=== PATIENT | male | born 1985 | race Caucasian/White ===

== ENCOUNTER 2017-07-09 05:05 | Inpatient (IN) | payer OTHER ==
[~2017-07-09] VITALS: Ht 182.9 cm; Wt 101.0 kg
[2017-07-09 10:05] VITALS: BP 144/76; PULSE 86; RESP 17; TEMP 98.1; O2SAT 98
[2017-07-09] MEDS ORDERED: ALUMINUM/MAGNESIUM/SIMETH 30 ML CUP PO PRN (10:30)
[2017-07-09] MEDS ORDERED: diphenhydrAMINE HCL 50 MG CAP PO PRN (10:30)
[2017-07-09] MEDS ORDERED: MAGNESIUM HYDROXIDE SUSP 30 ML CUP PO PRN (10:30)
[2017-07-09] MEDS ORDERED: BENZTROPINE MESYLATE 2 MG/2 ML VIAL IM PRN (10:30)
[2017-07-09] MEDS ORDERED: BENZTROPINE MESYLATE 1 MG TAB PO PRN (10:30)
--- NOTE | 2017-07-09 12:41 | HHI.HP ---
Provisional Diagnosis Admission Date July 09, 2017 at 10:14 [place] I. 1. Brief psychotic disorder Rule out primary psychotic disorder Rule out mood disorder with psychotic features Rule out psychosis due to a general medical or neurological condition Rule out psychosis due to substance [place] II. Deferred Certification of Person's Competence To Provide Express and Informed Consent I have personally examined Jared Segura , a person being served at [facility] on, July 09, 2017 12:41. Express and informed consent means consent voluntarily given in writing, by a competent person, after sufficient explanation and disclosure of the subject matter involved to enable the person to make a knowing and willful decision without any element of force, fraud, deceit, duress, or other form of constraint or coercion. This person is 18 years of age or older, is not now known to be incompetent to consent to treatment with a guardian advocate, and does not have a health care surrogate or proxy currently making medical treatment decisions. I have found this person to be one of the following: [] Competent to provide express and informed consent, as defined above, for voluntary admission to this facility and is competent to provide express and informed consent for treatment. He/she has the consistent capacity to make well reasoned, willful, and knowing decisions concerning his or her medical or mental health treatment. The person fully and consistently understands the purpose of the admission for examination/placement and is fully capable of personally exercising all rights assured under [place] [x] Incompetent to provide express and informed consent to voluntary admission, and this is incompetent to provide express and informed consent to treatment. The person must be transferred to involuntary status and a petition for a guardian advocate filed with the Circuit Court. [] Refusing to provide express and informed consent to voluntary admission but is competent to provide express and informed consent for treatment. The person must be discharged or transferred to involuntary status. Form shall be completed within 24 hours of a person's arrival at the receiving facility and filed in the clinical record of each person: 1. Admitted on a voluntary basis 2. Permitted to provide express and informed consent to his/her own treatment 3. Allowed to transfer from involuntary to voluntary status 4. Prior to permitting a person to consent to his or her own treatment after having been previously found incompetent to consent to treatment. History of Present Illness Capacity: Lacks Capacity Psych Chief Complaint: Psychosis HPI Mr. Segura is a 32-year-old male with no reported past psychiatric history who presents to us in transfer from [facility] under a [place] act. Documentation from outside hospital reviewed. According to the ED provider's note, the patient was brought into the ED when he was found staring at the sun, reportedly trying to contact the [place] consulate. Reviewing our electronic medical record, it appears this is patient's first visit to [place]. Patient seen and examined. Chart reviewed. Case discussed with nursing staff. On my examination today, patient is frankly responding to internal stimuli. Prior to my interview with him, I observe him speaking with an unseen interlocutor. During the interview, the patient is scanning the room intently with his eyes, and when I ask what he is doing, he explains that he is looking for a window. When I point out the large window in the corner of his room, he says that he is looking for "a window that opens." Patient confirms that he was trying to contact the [place] consulate by staring at the sun. Unclear how long he was staring at the sun, and patient is a poor historian. He explains " I had requested that they contact me about diplomatic immunity. 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 He denies AVH but appears frankly internally preoccupied as noted above. No other delusional material reported. Mood is "gloomy" and his sleep reportedly has been fairly poor. He denies any suicidal or homicidal ideation at this time. Remainder of the psychiatric ROS is negative. No acute physical complaints. Past psychiatric history: Patient denies a history of psychiatric diagnosis. He denies a history of inpatient or outpatient psychiatric treatment. He denies a history of suicide attempts. He denies a history of violent behavior. Family history: The patient denies a family history of mental illness or suicide. Chemical dependency history: Patient denies any abuse of drugs or alcohol. Social history: The patient reports that he lives with his mother Ria. He is single with no children. He is college educated and obtained a bachelor's degree in information technology. He says that he works but cannot recall in what capacity. He denies any history. Denies any legal history. Denies any access to guns or firearms. Denies any history of trauma. Describes himself as "kind of" gnosticism. Given the patient's degree of psychiatric impairment and with the patient's permission, I endeavored to reach out to patient's mother Ria and Father Ben. Left a voicemail at the number for patient's mother. Number for patient' s father was not set up to receive voicemails. I also tried calling the home number, which also did not allow me to leave a voicemail. Review of Systems ROS Limitations: Psychotic, Poor Historian Except as stated in HPI: all other systems reviewed are Neg Past Family Social History Coded Allergies: tramadol (Unverified Allergy, Unknown, 07/09/17) Past Medical History Patient denies any history of seizure. He denies any formally diagnosed medical problems but says that he has been having headaches and confusion over the last several weeks. Patient takes no home medications. Patient's Strengths (min. 2) In a monitored setting. Verbally fluent. Physical Exam Physical exam was completed by ED provider at outside hospital. On my examination today, the patient appears to be in no acute physical distress. No motor abnormalities noted. Laboratories and vital signs reviewed: Vital Signs Vital Signs Date Time Temp Pulse Resp B/P (MAP) Pulse Ox O2 Delivery O2 Flow Rate FiO2 07/09/17 10:05 98.1 86 17 144/76 (98) 98 Lab Results Laboratories from outside hospital reviewed: CBC reveals leukocytosis at 16.25. No overt signs or symptoms of infection. BMP fairly unremarkable except for mild hyperglycemia in nonfasting sample. Urine toxicology negative. Alcohol level undetectable. Mental Status Examination Appearance: Disheveled Consciousness: Alert Orientation: Person, Place, Date/Time (2018. Gives the month as June.) Motor Activity: Normal gait Speech: Unremarkable Language: Other (Somewhat rambling) Fund of Knowledge: Adequate Attention and Concentration: Easily Distracted Memory: Impaired (Suspect psychosis interferes) Mood: Other ("Gloomy") Affect: Blunt Thought Process & Associations: Circumstantial Thought Content: Hallucinations, Delusional Hallucination Type: Other (Appears frankly internally stimulated) Delusion Type: Other (Grandiose) Suicidal Ideation: No Suicidal Plan: No Suicidal Intention: No Homicidal Ideation: No Homicidal Plan: No Homicidal Intention: No Insight: Poor Judgment: Poor Assessment & Plan Problem List: (1) Brief psychotic disorder ICD Codes: F23 - Brief psychotic disorder Assessment & Plan 32-year-old male with psychiatric history as detailed above who presents in transfer from outside hospital under [place] act. On my examination today, the patient presents as floridly psychotic. His presenting behavior of staring into the sun is concerning, and I am worried about self-care deficit more generally as a consequence of psychiatric illness. The patient denies a history of psychiatric illness, and so unless collateral information to the contrary is obtained I will treat this as first-break psychosis. Patient requires psychiatric hospitalization at this time for safety, observation and stabilization. Admit inpatient. Involuntary status. I have completed first opinion. Consult for second opinion. Request healthcare surrogate and guardian advocate. Unable to order any psychotropics at this time as we have no one to provide consent. Patient might benefit from empiric trial of antipsychotic medication. Initiate first break psychosis workup including MRI of the brain, EEG, TSH, B12, folate, ESR, CHIKIS, ammonia, RPR, HIV. Check CBC to follow up leukocytosis. Check CMP. Check EKG for QTc. Patient was staring at the sun for an indeterminate amount of time prior to admission; he has no overt visual difficulties, but I will request an ophthalmology consultation to assess for more subtle damage as a consequence of this behavior. Vitals every shift. Counselor to see. Collateral information. Disposition planning. Estimated length of stay: 5-7 days. Discharge Planning Pending psychiatric stabilization Request HC Surrog/Guard Advoc?: Yes Ismael Quigley MD July 09, 2017 12:41
[2017-07-09 17:00] VITALS: BP 127/83; PULSE 90; RESP 18; TEMP 97.9; O2SAT 98
[2017-07-09 17:59] LABS: AUTOMATED NEUTROPHIL # 6.4 TH/MM3 (1.8-7.7); BASOPHIL % 0.4 % (0.0-2.0); EOSINOPHIL # 0.2 TH/MM3 (0-0.4); EOSINOPHIL % 1.8 % (0.0-4.0); HEMATOCRIT 43.1 % (39.0-51.0); HEMOGLOBIN 15.1 GM/DL (13.0-17.0); LYMPH % 22.6 % (9.0-44.0); LYMPHOCYTE # 2.2 TH/MM3 (1.0-4.8); MEAN CELL VOLUME 88.9 FL (80.0-100.0); MEAN CORPUSCULAR HEMOGLOBIN 31.1 PG (27.0-34.0); MEAN PLATELET VOLUME 8.8 FL (7.0-11.0); MONO % 8.7 % (0.0-8.0); MONOCYTE # 0.8 TH/MM3 (0-0.9); NEUT % 66.5 % (16.0-70.0); PLATELET COUNT 245 TH/MM3 (150-450); RED BLOOD COUNT 4.84 MIL/MM3 (4.50-5.90); RED CELL DISTRIBUTION WIDTH 15.8 % (11.6-17.2); WHITE BLOOD COUNT 9.7 TH/MM3 (4.0-11.0)
[2017-07-09 18:15] LABS: AST (GOT) 22 U/L (15-37); BLOOD UREA NITROGEN 7 MG/DL (7-18); CALCIUM 8.4 MG/DL (8.5-10.1); CHLORIDE 103 MEQ/L (98-107); CREATININE 0.85 MG/DL (0.60-1.30); GLOMERULAR FILTRATION RATE 105 ML/MIN (>89); GLUCOSE,RANDOM 112 MG/DL (74-106); SODIUM (NA) 138 MEQ/L (136-145)
[2017-07-09 18:42] LABS: ALKALINE PHOSPHATASE 62 U/L (45-117); ALT (GPT) 31 U/L (12-78); FOLATE 8.9 NG/ML (3.1-17.5); TOTAL BILIRUBIN ADULT 0.7 MG/DL (0.2-1.0); TOTAL PROTEIN 7.3 GM/DL (6.4-8.2)
[2017-07-09] MEDS: ACETAMINOPHEN 325 MG TAB PO PRN (21:00)
[2017-07-10 06:07] VITALS: BP 129/75; PULSE 77; RESP 16; TEMP 97.7; O2SAT 97
[2017-07-10 08:42] LABS: BICARBONATE 25.1 MEQ/L (21.0-32.0); BLOOD UREA NITROGEN 7 MG/DL (7-18); CALCIUM 8.5 MG/DL (8.5-10.1); CHLORIDE 105 MEQ/L (98-107); CHOLESTEROL 134 MG/DL (120-200); CREATININE 0.79 MG/DL (0.60-1.30); GLOMERULAR FILTRATION RATE 114 ML/MIN (>89); GLUCOSE,RANDOM 81 MG/DL (74-106); SODIUM (NA) 139 MEQ/L (136-145); TRIGLYCERIDES 68 MG/DL (42-150)
[2017-07-10 08:46] LABS: HDL CHOLESTEROL 40.6 MG/DL (40.0-60.0); LDL CHOLESTEROL 80 MG/DL (0-99)
--- NOTE | 2017-07-10 09:54 | RADRPT ---
EXAM DATE/TIME: 07/10/2017 09:09 [place] COMPARISON: No previous studies available for comparison. INDICATIONS : Cephalgia. Confusion. Psychosis. CONTRAST: 20 cc Omniscan (gadodiamide) IV MEDICAL HISTORY : None. SURGICAL HISTORY : None. ENCOUNTER: Initial ACUITY: 2 day PAIN SCORE: 3/10 LOCATION: head. TECHNIQUE: Multiplanar, multisequence MRI of the brain was performed both prior to and following the administrat ion of paramagnetic contrast. FINDINGS: CEREBRUM: The ventricles are normal for age. No evidence of midline shift, mass lesion, hemorrhage or acute in farction. No extraaxial fluid collections are seen. The pituitary gland and suprasellar cistern are normal in configuration. WHITE MATTER: No significant signal abnormalities are seen in the white matter. POSTERIOR FOSSA: The cerebellum and brainstem are intact. The 4th ventricle is midline. The cerebellopontine angle is unremarkable. The cerebellar tonsils are normal in position. DIFFUSION IMAGING: No focal areas of restricted diffusion are seen. No evidence of acute infarction. EXTRACRANIAL: The visualized portions of the orbits and paranasal sinuses are unremarkable. POST-CONTRAST: No abnormal areas of parenchymal or dural enhancement. No evidence of blood-brain barrier breakdown. CONCLUSION: Normal examination for a patient of this age. Matty Crook MD on July 10, 2017 at 9:45 Board Certified Radiologist. This report was verified electronically.
[2017-07-10] MEDS ORDERED: GADODIAMIDE PF 287 MG/ML 20 ML VIAL (for RAD MRI) IVCONTRAST ONE (10:13)
--- NOTE | 2017-07-10 12:39 | PD.PSY.CON ---
Provisional Diagnosis Admission Date July 09, 2017 at 10:14 [place] I. 1. Brief psychotic disorder Rule out primary psychotic disorder Rule out mood disorder with psychotic features Rule out psychosis due to a general medical or neurological condition Rule out psychosis due to substance [place] II. Deferred History of Present Illness Service Psychiatry Consult Requested By Psychiatry Reason for Consult Second opinion Primary Care Physician No Primary Care Physician HPI Mr. Segura is a 32-year-old male with no reported past psychiatric history who presents to us in transfer from [facility] under a [place] act. Documentation from outside hospital reviewed. According to the ED provider's note, the patient was brought into the ED when he was found staring at the sun, reportedly trying to contact the [place] consulate. Reviewing our electronic medical record, it appears this is patient's first visit to [place].Patient seen and examined. Chart reviewed. Case discussed with nursing staff. On my examination today, patient is frankly responding to internal stimuli. Prior to my interview with him, I observe him speaking with an unseen interlocutor. During the interview, the patient is scanning the room intently with his eyes, and when I ask what he is doing, he explains that he is looking for a window. When I point out the large window in the corner of his room, he says that he is looking for "a window that opens." Patient confirms that he was trying to contact the [place] consulate by staring at the sun. Unclear how long he was staring at the sun, and patient is a poor historian. He explains "I had requested that they contact me about diplomatic immunity. 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 He denies AVH but appears frankly internally preoccupied as noted above. No other delusional material reported. Mood is "gloomy" and his sleep reportedly has been fairly poor. He denies any suicidal or homicidal ideation at this time. Remainder of the psychiatric ROS is negative. No acute physical complaints. The patient is a 32-year-old man, domiciled with his mother in a [place], single, unemployed, with psychiatric history of OCD, no prepsychotic hospitalizations, no previous suicide attempts, no significant medical history, who was brought to the hospital transfer from [facility] in [facility] on the Lomas act because the patient was found staring at the son was reportedly trying to contact the [place] [employer]. Patient was consulted to me for second opinion. On my evaluation the patient is calm, cooperative, patient reports that he does not really know the reason he was brought to the hospital. He states that he was just fine "and the police could not understand". Patient denies having suicidal or homicidal ideation, he denies having visual and auditory hallucinations. Patient is visibly internally preoccupied, with very flat affect and oddly related. His oriented 3. Past Family Social History Coded Allergies: tramadol (Unverified Allergy, Unknown, 07/09/17) Current Medications Medications (Trade) Dose Ordered Sig/Paco Route Start Time Stop Time Status Last Admin (Benadryl) 50 mg HS PRN PO 07/09/17 10:30 Future Hold (Tylenol) 650 mg Q4H PRN PO 07/09/17 10:30 07/09/17 21:00 (Milk Of Magnesia Liq) 30 ml DAILY PRN PO 07/09/17 10:30 (Mag-Al Plus Susp Liq) 30 ml Q6H PRN PO 07/09/17 10:30 (Habitrol 21 Mg Patch.24 Hr) 1 patch DAILY PRN T-DERMAL 07/09/17 10:30 (Cogentin) 1 mg Q12H PRN PO 07/09/17 10:30 Future Hold (Cogentin Inj) 1 mg Q12H PRN IM 07/09/17 10:30 Future Hold Family Psych History No family psychiatric Social History The patient was born and raised in [place], he losing [place] with his mother, single, employed, Patient's Strengths (min. 2) In a monitored setting. Verbally fluent. Physical Exam Vital Signs Vital Signs Date Time Temp Pulse Resp B/P (MAP) Pulse Ox O2 Delivery O2 Flow Rate FiO2 07/10/17 06:07 97.7 77 16 129/75 (93) 97 Lab Results Test 07/09/17 17:29 07/10/17 07:08 White Blood Count 9.7 TH/MM3 Red Blood Count 4.84 MIL/MM3 Hemoglobin 15.1 GM/DL Hematocrit 43.1 % Mean Corpuscular Volume 88.9 FL Mean Corpuscular Hemoglobin 31.1 PG Mean Corpuscular Hemoglobin Concent 35.0 % Red Cell Distribution Width 15.8 % Platelet Count 245 TH/MM3 Mean Platelet Volume 8.8 FL Neutrophils (%) (Auto) 66.5 % Lymphocytes (%) (Auto) 22.6 % Monocytes (%) (Auto) 8.7 % Eosinophils (%) (Auto) 1.8 % Basophils (%) (Auto) 0.4 % Neutrophils # (Auto) 6.4 TH/MM3 Lymphocytes # (Auto) 2.2 TH/MM3 Monocytes # (Auto) 0.8 TH/MM3 Eosinophils # (Auto) 0.2 TH/MM3 Basophils # (Auto) 0.0 TH/MM3 CBC Comment DIFF FINAL Differential Comment Erythrocyte Sedimentation Rate 1 mm/hr Blood Urea Nitrogen 7 MG/DL 7 MG/DL Creatinine 0.85 MG/DL 0.79 MG/DL Random Glucose 112 MG/DL 81 MG/DL Total Protein 7.3 GM/DL Albumin 4.0 GM/DL Calcium Level 8.4 MG/DL 8.5 MG/DL Alkaline Phosphatase 62 U/L Aspartate Amino Transf (AST/SGOT) 22 U/L Alanine Aminotransferase (ALT/SGPT) 31 U/L Total Bilirubin 0.7 MG/DL Sodium Level 138 MEQ/L 139 MEQ/L Potassium Level 3.4 MEQ/L 3.7 MEQ/L Chloride Level 103 MEQ/L 105 MEQ/L Carbon Dioxide Level 26.0 MEQ/L 25.1 MEQ/L Anion Gap 9 MEQ/L 9 MEQ/L Estimat Glomerular Filtration Rate 105 ML/MIN 114 ML/MIN Ammonia 26 MCMOL/L Vitamin B12 Level 366 PG/ML Folate 8.9 NG/ML Thyroid Stimulating Hormone 3rd Gen 1.000 uIU/ML Rapid Plasma Reagin NON-REACTIVE HIV (1&2) Ab and P24 Ag, 4th Gener NONREACTIVE Triglycerides Level 68 MG/DL Cholesterol Level 134 MG/DL LDL Cholesterol 80 MG/DL HDL Cholesterol 40.6 MG/DL Cholesterol/HDL Ratio 3.30 RATIO Mental Status Examination Appearance: Disheveled Consciousness: Alert Orientation: Person, Place, Date/Time (2017. Gives the month as June.) Motor Activity: Normal gait Speech: Unremarkable Language: Other (Somewhat rambling) Fund of Knowledge: Adequate Attention and Concentration: Easily Distracted Memory: Impaired (Suspect psychosis interferes) Mood: Other ("Gloomy") Affect: Blunt Thought Process & Associations: Circumstantial Thought Content: Hallucinations, Delusional Hallucination Type: Other (Appears frankly internally stimulated) Delusion Type: Other (Grandiose) Suicidal Ideation: No Suicidal Plan: No Suicidal Intention: No Homicidal Ideation: No Homicidal Plan: No Homicidal Intention: No Insight: Poor Judgment: Poor Assessment & Plan Problem List: (1) Brief psychotic disorder ICD Codes: F23 - Brief psychotic disorder Assessment & Plan: I have seen and examined this patient, reviewed documentation, I agree and concur with Dr. Quigley assessment and plan. Consult appreciated. Assessment & Plan Estimated LOS: days Request HC Surrog/Guard Advoc?: Yes Fernando Del Valle MD July 10, 2017 12:39
--- NOTE | 2017-07-10 12:42 | HHI.PYPN ---
Subjective Chief Complaint: Psychosis Remarks Patient seen and examined with counselor and nurse. Chart reviewed. Case discussed with nursing staff. Patient noted to be quiet and seclusive to his room. On my examination today, the patient insists that the hole in his head, invisible to us, is getting larger and that he can "hear words" through this hole. He adamantly denies any auditory hallucinations, but it is unclear what he means by his report of hearing words through the hole. He appears a little less internally preoccupied today. No material regarding the [place] consulate volunteered today, although he does seem to be preoccupied with this material when I ask him about it. No other physical complaints. Patient unable to provide any new numbers for collateral. I tried calling all 3 numbers that we have on file: 1) Mother's number is confirmed to be a wrong number. 2) Father's number won't accept VM. 3) Home number won't accept VM. Review of Systems ROS Limitations: Psychotic Except as stated in HPI: all other systems reviewed are Neg Mental Status Examination Appearance: Disheveled Consciousness: Alert Orientation: Person, Place (At least) Motor Activity: Normal gait Speech: Unremarkable Language: Adequate Fund of Knowledge: Adequate Attention and Concentration: Easily Distracted Memory: Impaired (Suspect psychosis interferes) Mood: Other (Calm) Affect: Blunt Thought Process & Associations: Circumstantial Thought Content: Hallucinations, Delusional Hallucination Type: Other (Remains internally preoccupied) Delusion Type: Other (Suspect ongoing grandiosity) Suicidal Ideation: No (No SI voiced) Homicidal Ideation: No (No HI voiced) Insight: Poor Judgment: Poor Results Labs Test 07/09/17 17:29 07/10/17 07:08 White Blood Count 9.7 TH/MM3 Red Blood Count 4.84 MIL/MM3 Hemoglobin 15.1 GM/DL Hematocrit 43.1 % Mean Corpuscular Volume 88.9 FL Mean Corpuscular Hemoglobin 31.1 PG Mean Corpuscular Hemoglobin Concent 35.0 % Red Cell Distribution Width 15.8 % Platelet Count 245 TH/MM3 Mean Platelet Volume 8.8 FL Neutrophils (%) (Auto) 66.5 % Lymphocytes (%) (Auto) 22.6 % Monocytes (%) (Auto) 8.7 % Eosinophils (%) (Auto) 1.8 % Basophils (%) (Auto) 0.4 % Neutrophils # (Auto) 6.4 TH/MM3 Lymphocytes # (Auto) 2.2 TH/MM3 Monocytes # (Auto) 0.8 TH/MM3 Eosinophils # (Auto) 0.2 TH/MM3 Basophils # (Auto) 0.0 TH/MM3 CBC Comment DIFF FINAL Differential Comment Erythrocyte Sedimentation Rate 1 mm/hr Blood Urea Nitrogen 7 MG/DL 7 MG/DL Creatinine 0.85 MG/DL 0.79 MG/DL Random Glucose 112 MG/DL 81 MG/DL Total Protein 7.3 GM/DL Albumin 4.0 GM/DL Calcium Level 8.4 MG/DL 8.5 MG/DL Alkaline Phosphatase 62 U/L Aspartate Amino Transf (AST/SGOT) 22 U/L Alanine Aminotransferase (ALT/SGPT) 31 U/L Total Bilirubin 0.7 MG/DL Sodium Level 138 MEQ/L 139 MEQ/L Potassium Level 3.4 MEQ/L 3.7 MEQ/L Chloride Level 103 MEQ/L 105 MEQ/L Carbon Dioxide Level 26.0 MEQ/L 25.1 MEQ/L Anion Gap 9 MEQ/L 9 MEQ/L Estimat Glomerular Filtration Rate 105 ML/MIN 114 ML/MIN Ammonia 26 MCMOL/L Vitamin B12 Level 366 PG/ML Folate 8.9 NG/ML Thyroid Stimulating Hormone 3rd Gen 1.000 uIU/ML Rapid Plasma Reagin NON-REACTIVE HIV (1&2) Ab and P24 Ag, 4th Gener NONREACTIVE Triglycerides Level 68 MG/DL Cholesterol Level 134 MG/DL LDL Cholesterol 80 MG/DL HDL Cholesterol 40.6 MG/DL Cholesterol/HDL Ratio 3.30 RATIO Labs reviewed. First break psychosis laboratories unrevealing so far. Only pending laboratory is CHIKIS and HgbA1c. Last Impressions Brain MRI 07/10/17 0000 Signed Impressions: Service Date/Time: July 09:09 - CONCLUSION: Normal examination for a patient of this age. Matty Crook MD EEG pending. Patient refused EKG. Vitals/IOs Vital Signs Date Time Temp Pulse Resp B/P (MAP) Pulse Ox O2 Delivery O2 Flow Rate FiO2 07/10/17 06:07 97.7 77 16 129/75 (93) 97 Assessment & Plan Problem List: (1) Brief psychotic disorder ICD Codes: F23 - Brief psychotic disorder Assessment & Plan Ongoing psychotic symptoms. Workup for a general medical causes of psychosis unrevealing. Patient would likely benefit from an antipsychotic, but we still have no one to provide consent. Awaiting ophthalmology consultation. Continue to monitor on the inpatient unit. Continue other medications and care as ordered. Justification for Cont. Inpt. Impairment in reality construction. Concern for impairment in safety. High risk for decompensation in less restrictive environment. Discharge Planning Pending psychiatric stabilization Request HC Surrog/Guard Advoc?: Yes Ismael Quigley MD July 10, 2017 12:42
[2017-07-10 16:17] LABS: HEMOGLOBIN A1C 4.6 % (4.3-6.0)
[2017-07-10 18:23] VITALS: BP 142/81; PULSE 90; RESP 17; TEMP 98.8; O2SAT 98
[2017-07-11 06:17] VITALS: BP 136/93; PULSE 85; RESP 16; TEMP 98.2; O2SAT 99
--- NOTE | 2017-07-11 12:08 | PD.CONS ---
History of Present Illness Service Ophthalmology Consult Requested By Reason for Consult rule out solar maculopathy Primary Care Physician No Primary Care Physician Diagnoses: History of Present Illness 32 yo WM with h/o OCD who was brought to the hospital transferred from [facility] in [facility] under L[place] act because the patient was found staring at the sun. Reportedly trying to contact the [place] Consulate. Ophthalmology consulted for an eye exam. Pt states he has mild blurry central vision in both eyes. No significant ocular history. Past Family Social History Allergies: Coded Allergies: tramadol (Unverified Allergy, Unknown, 07/09/17) Physical Exam Vital Signs Vital Signs Date Time Temp Pulse Resp B/P (MAP) Pulse Ox O2 Delivery O2 Flow Rate FiO2 07/11/17 06:17 98.2 85 16 136/93 (107) 99 07/10/17 18:23 98.8 90 17 142/81 (101) 98 Physical Exam Va cc at near OD 20/20, OS 20/20 EOM full OU, no diplopia CVF full OU Pupils 2-1 no APD OU IOP normal to palpation OU Anterior exam OD - normal eyelid, C/S W&Q, K clear, AC deep, pupil round, lens clear OS - normal eyelid, C/S W&Q, K clear, AC deep, pupil round, lens clear Dilated exam OD - ON s/p/f, ves normal, vit clear, retina flat, mild maculopathy OS - ON s/p/f, ves normal, vit clear, retina flat, mild maculopathy Result Diagram: 07/09/17 1729 07/10/17 0708 Assessment and Plan Problem List: (1) Solar retinopathy of both eyes ICD Codes: 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 Advised pt to follow up as an outpatient so further tests/pictures can be performed. Birdie Patel MD July 11, 2017 12:08
--- NOTE | 2017-07-11 12:12 | HHI.PYPN ---
Subjective Chief Complaint: Psychosis Remarks Patient seen in day room, with floor staff, chart reviewed, patient medications still on hold due to inability to gain appropriate consent patient is somewhat vague about the nascimento and was had and although he still 6 be responding to internal stimuli. Review of Systems Except as stated in HPI: all other systems reviewed are Neg Mental Status Examination Appearance: Disheveled Consciousness: Alert Orientation: Person, Place (At least) Motor Activity: Normal gait Speech: Unremarkable Language: Adequate Fund of Knowledge: Adequate Attention and Concentration: Easily Distracted Memory: Impaired (Suspect psychosis interferes) Mood: Other (Calm) Affect: Blunt Thought Process & Associations: Circumstantial Thought Content: Hallucinations, Delusional Hallucination Type: Other (Remains internally preoccupied) Delusion Type: Other (Suspect ongoing grandiosity) Suicidal Ideation: No (No SI voiced) Homicidal Ideation: No (No HI voiced) Insight: Poor Judgment: Poor Results Vitals/IOs Vital Signs Date Time Temp Pulse Resp B/P (MAP) Pulse Ox O2 Delivery O2 Flow Rate FiO2 07/11/17 06:17 98.2 85 16 136/93 (107) 99 Assessment & Plan Problem List: (1) Brief psychotic disorder ICD Codes: F23 - Brief psychotic disorder Assessment & Plan Estimated LOS: days patient remains psychotic and delusional, scheduled to go to EEG. For now continue treatment Justification for Cont. Inpt. At this time patient would decompensate a place to the lower level of care Discharge Planning To be determined Request HC Surrog/Guard Advoc?: Yes Ben Nobles MD July 11, 2017 12:12
[2017-07-11] MEDS: NICOTINE 21 MG/24 HR PATCH T-DERMAL PRN (12:30)
[2017-07-11] MEDS: ACETAMINOPHEN 325 MG TAB PO PRN (12:53)
--- NOTE | 2017-07-11 16:11 | MG ---
cc: Soha Leonard MD EEG NUMBER: [id number] REFERRING PHYSICIAN: Ismael Quigley MD INDICATION: In 703, awake, drowsy, asleep, with hyperventilation noted to be a good effort as well as photic stimulation. He is a 32-year-old man transferred from [facility] under Lomas Act, found staring at the sun, trying to contact the [place] [employer]. Headaches, herniated disk, OCD, caffeine use. On Benadryl, nicotine, cogentin. DESCRIPTION OF RECORD: The patient has overall alpha rhythm of 11 Hz, 20-30 microvolts. Photic stimulation performed at the initial portion of the recording. There is some mild driving noted. Otherwise, there is quite a bit of eye movement. Hyperventilation is performed. There is no change in the background. EKG does look sinus. IMPRESSION: Overall, normal appearing electroencephalogram. No epileptiform features. Clinical correlation. Soha Leonard MD DF/MANUEL , 03:22 PM , 04:10 PM
[2017-07-11 17:50] VITALS: BP 139/83; PULSE 79; RESP 17; TEMP 98.4; O2SAT 99
[2017-07-12 06:00] VITALS: BP 150/72; PULSE 81; RESP 18; TEMP 97.4; O2SAT 98
[2017-07-12] MEDS: NICOTINE 21 MG/24 HR PATCH T-DERMAL PRN (11:32)
--- NOTE | 2017-07-12 13:39 | HHI.PYPN ---
Subjective Chief Complaint: Psychosis Remarks Patient was seen and case discussed with nursing. I believe patient has the ability to consent for his own medications. We will make that change. Nursing was asked to call his mom and obtain a current medication list. Patient remains flat and somewhat internally preoccupied. Denies auditory or visual hallucinations. Has trouble remembering some of the delusions that he has upon admission Mental Status Examination Appearance: Disheveled Consciousness: Alert Orientation: Person, Place (At least) Motor Activity: Normal gait Speech: Unremarkable Language: Adequate Fund of Knowledge: Adequate Attention and Concentration: Easily Distracted Memory: Impaired (Suspect psychosis interferes) Mood: Other (Calm) Affect: Blunt Thought Process & Associations: Circumstantial Thought Content: Hallucinations, Delusional Hallucination Type: Other (Remains internally preoccupied) Delusion Type: Other (Suspect ongoing grandiosity) Suicidal Ideation: No (No SI voiced) Homicidal Ideation: No (No HI voiced) Insight: Poor Judgment: Poor Results Vitals/IOs Vital Signs Date Time Temp Pulse Resp B/P (MAP) Pulse Ox O2 Delivery O2 Flow Rate FiO2 07/12/17 06:00 97.4 81 18 150/72 (98) 98 Assessment & Plan Problem List: (1) Brief psychotic disorder ICD Codes: F23 - Brief psychotic disorder Assessment & Plan Continue current treatment plan Justification for Cont. Inpt. Patient would decompensate in a less restrictive setting Request HC Surrog/Guard Advoc?: Yes Bonifacio Ovalles DO July 12, 2017 13:39
[2017-07-12] MEDS ORDERED: hydrOXYzine HCL 50 MG TAB PO PRN (13:45)
[2017-07-12 18:48] VITALS: BP 129/75; PULSE 80; RESP 17; TEMP 98.5; O2SAT 98
[2017-07-13 05:41] VITALS: BP 125/69; PULSE 66; RESP 18; TEMP 97.9; O2SAT 99
[2017-07-13] MEDS: NICOTINE 21 MG/24 HR PATCH T-DERMAL PRN (10:51)
--- NOTE | 2017-07-13 13:40 | HHI.PYPN ---
Subjective Chief Complaint: Psychosis Remarks Patient was seen and case discussed with nursing. Patient says that the Atarax is making him too sleepy. Yesterday we gave him consent for medication but we still do not have a list of any mood stabilizers or antipsychotics she was taking. He was told that benzodiazepines are not appropriate. Mental Status Examination Appearance: Disheveled Consciousness: Alert Orientation: Person, Place (At least) Motor Activity: Normal gait Speech: Unremarkable Language: Adequate Fund of Knowledge: Adequate Attention and Concentration: Easily Distracted Memory: Impaired (Suspect psychosis interferes) Mood: Other (Calm) Affect: Blunt Thought Process & Associations: Circumstantial Thought Content: Hallucinations (Would not answer today), Delusional Hallucination Type: Other (Remains internally preoccupied) Delusion Type: Other (Suspect ongoing grandiosity) Suicidal Ideation: No (No SI voiced) Homicidal Ideation: No (No HI voiced) Insight: Poor Judgment: Poor Results Vitals/IOs Vital Signs Date Time Temp Pulse Resp B/P (MAP) Pulse Ox O2 Delivery O2 Flow Rate FiO2 07/13/17 05:41 97.9 66 18 125/69 (87) 99 Assessment & Plan Problem List: (1) Brief psychotic disorder ICD Codes: F23 - Brief psychotic disorder Assessment & Plan Continue current treatment plan Justification for Cont. Inpt. Patient would decompensate in a less restrictive setting Request HC Surrog/Guard Advoc?: Yes Bonifacio Ovalles DO July 13, 2017 13:40
[2017-07-13] MEDS: GABAPENTIN 300 MG CAP PO SCH ×2 (14:00→17:36)
[2017-07-13] MEDS: ACETAMINOPHEN 325 MG TAB PO PRN (21:01)
[2017-07-14 06:33] VITALS: BP 128/77; PULSE 82; RESP 18; TEMP 97.5; O2SAT 98
[2017-07-14] MEDS: ACETAMINOPHEN 325 MG TAB PO PRN ×2 (06:45→22:04)
[2017-07-14] MEDS: GABAPENTIN 300 MG CAP PO SCH ×4 (08:30→18:00)
--- NOTE | 2017-07-14 11:03 | HHI.PYPN ---
Subjective Chief Complaint: Psychosis Remarks Patient seen and examined with nurse. Chart reviewed. I note patient was started on Atarax for anxiety, subsequently held secondary to complaints of sedation. Thereafter, patient was started on gabapentin. Case discussed with nursing staff. On my exam, patient is a somewhat vague historian. He tells me that he has been feeling anxious, and when I ask why he replies "different stresses." He denies SI/HI. He denies AVH. He does not appear internally stimulated. No delusional material verbalized. He would like to be placed back on his Atarax p.r.n.. He denies side effects from medications. He is not interested in an antipsychotic. No physical complaints. He does note that he has been using Kratom prior to admission. With patient's permission, was able to get a hold of patient's mother by phone. She notes patient has a history of anxiety but never had a history of psychosis or other mental illness. There is no family history besides depression in maternal grandmother. She denies a history of suicide attempts or violent behavior by the patient. Patient's father ~1 month ago, and this has been a stressor for patient. Mother notes that patient has been using Kratom. Patient reportedly had been in his usual state of mental health until the morning of admission. Mother spoke with patient this morning and feels like he is back to normal. She is hopeful that he will be discharged tomorrow. I have recommended that she secure the home environment of all potential means of harm to self or others out of an abundance of caution. I have counseled her regarding the mechanisms in place to have the patient return for further psychiatric evaluation should the need arise including Cesilia ching and sandra velarde. I spent ~20min in telephone consultation with patient's mother. Review of Systems Except as stated in HPI: all other systems reviewed are Neg Mental Status Examination Appearance: Appropriate Consciousness: Alert Orientation: Person, Place (At least) Motor Activity: Normal gait, Other (No abnormal motor movements noted) Speech: Unremarkable Language: Adequate Fund of Knowledge: Adequate Attention and Concentration: Easily Distracted Memory: Unremarkable Mood: Appropriate Affect: Appropriate Thought Process & Associations: Intact, Other (somewhat vague) Thought Content: Appropriate Hallucination Type: None Delusion Type: None Suicidal Ideation: No Suicidal Plan: No Suicidal Intention: No Homicidal Ideation: No Homicidal Plan: No Homicidal Intention: No Mental Status Exam Remarks Insight and judgment are perhaps improving. Results Labs Labs reviewed. EEG read as normal. EKG NSR with QTc wnl. Vitals/IOs Vital Signs Date Time Temp Pulse Resp B/P (MAP) Pulse Ox O2 Delivery O2 Flow Rate FiO2 07/14/17 06:33 97.5 82 18 128/77 (94) 98 Assessment & Plan Problem List: (1) Brief psychotic disorder ICD Codes: F23 - Brief psychotic disorder Assessment & Plan Psychosis seems much improved today. DDx would still include primary psychotic illness that is resolving without antipsychotic, but Kratom-induced psychosis or adjustment reaction related to father's passing seem much more likely given collateral information from mother. I will resume Atarax p.r.n. per patient preference and continue gabapentin as ordered. Continue to monitor on the inpatient unit. Continue other medications and care as ordered. Justification for Cont. Inpt. Impairment in reality construction, resolving or resolved. Discharge Planning Possible discharge home tomorrow with outpatient follow-up. Request HC Surrog/Guard Advoc?: No Ismael Quigley MD July 14, 2017 11:03
[2017-07-14] MEDS: hydrOXYzine HCL 50 MG TAB PO PRN ×2 (14:05→23:19)
[2017-07-14 17:04] VITALS: BP 114/77; PULSE 84; RESP 18; TEMP 97.7; O2SAT 99
[2017-07-15] MEDS: ACETAMINOPHEN 325 MG TAB PO PRN ×2 (04:32→12:29)
[2017-07-15 06:00] VITALS: BP 140/84; PULSE 77; RESP 18; TEMP 97.3; O2SAT 97
[2017-07-15] MEDS: GABAPENTIN 300 MG CAP PO SCH ×2 (08:51→13:00)
[2017-07-15] MEDS: hydrOXYzine HCL 50 MG TAB PO PRN ×2 (08:51→15:44)
[2017-07-15] MEDS: NICOTINE 21 MG/24 HR PATCH T-DERMAL PRN (08:55)
--- NOTE | 2017-07-15 09:31 | EKG ---
Date Performed: 07/14/2017 Time Performed: 13:07:47 PTAGE: 32 years EKG: Sinus rhythm NORMAL ECG NO PREVIOUS TRACING DOCTOR: Vangie Quintana Interpretating Date/Time 07/15/2017 09:30:36
[2017-07-15] MEDS ORDERED: HYDR50TA94 PO (10:47)
--- NOTE | 2017-07-15 10:48 | HHI.DS ---
Psychiatry Discharge Summary Inpatient Psychiatric care?: Yes Advance Directive: No Reason Not Provided: does not have Mental Health AdvanceDirective: No Health Care Proxy: No Admission Admission Date July 09, 2017 at 10:14 Admission Diagnosis: (1) Brief psychotic disorder ICD Code: F23 - Brief psychotic disorder Brief History Mr. Segura is a 32-year-old male with no reported past psychiatric history who presents to us in transfer from [facility] under a Lomas act. Documentation from outside hospital reviewed. According to the ED provider's note, the patient was brought into the ED when he was found staring at the sun, reportedly trying to contact the [place] consulate. Reviewing our electronic medical record, it appears this is patient's first visit to [place].Patient seen and examined. Chart reviewed. Case discussed with nursing staff. On my examination today, patient is frankly responding to internal stimuli. Prior to my interview with him, I observe him speaking with an unseen interlocutor. During the interview, the patient is scanning the room intently with his eyes, and when I ask what he is doing, he explains that he is looking for a window. When I point out the large window in the corner of his room, he says that he is looking for "a window that opens." Patient confirms that he was trying to contact the [place] consulate by staring at the sun. Unclear how long he was staring at the sun, and patient is a poor historian. He explains "I had requested that they contact me about diplomatic immunity. 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 He denies AVH but appears frankly internally preoccupied as noted above. No other delusional material reported. Mood is "gloomy" and his sleep reportedly has been fairly poor. He denies any suicidal or homicidal ideation at this time. Remainder of the psychiatric ROS is negative. No acute physical complaints. Tobacco Use In Past 30 Days: 5 or More Cigarettes/Day Alcohol Use: Monthly or Less Hospital Course Patient was admitted to a locked, inpatient psychiatric unit. An ophthalmology consultation was obtained to assess for any damage to the patient's eyes as a consequence of staring into the sun prior to admission. Appropriate precautions were in place throughout patient's hospital stay. The patient was seen and examined on the unit by psychiatry and also visited by counselor. Psychotropic medication management was undertaken, although the patient declined treatment with an antipsychotic. Patient's presenting psychosis resolved despite not receiving antipsychotic, and collateral information from patient's mother and from the patient himself (once he was clearer thinking) indicated that the patient had been using Kratom prior to admission. A drug- induced psychotic disorder associated with Kratom use is highest on my differential diagnosis at the time of discharge, although primary psychotic illness cannot be ruled out. There was no evidence of any suicidality or homicidality on the inpatient unit. Self-care improved as psychosis resolved. Collateral information was obtained from the patient's mother. On the day of discharge: Patient seen and examined with nurse. Chart reviewed. Case discussed with nursing staff. No behavioral issues noted overnight. Case discussed in treatment team. On my examination today, the patient is requesting discharge from the inpatient psychiatric unit today. He denies any suicidal or homicidal ideation, intent or plan and contracts for safety. I can elicit no depressive or hypomanic/manic symptoms. He does complain of some mild anxiety and says that he is eager to leave the inpatient unit as he would feel less anxious in a less restrictive setting. He denies any audiovisual hallucinations. I can elicit no delusional material. There is no evidence of ongoing impairment in reality construction. He denies side effects from medications. He does not feel like the gabapentin is providing him any benefit and would rather not continue this on discharge. He would like to continue with the Atarax as needed. No physical complaints. Weighing the relevant factors and based on the available evidence, I spark tester that the patient does not meet criteria for ongoing involuntary psychiatric hospitalization at this time. There is no evidence of imminent risk of harm to self or others at this point , nor is there evidence of significant self-care deficit. The patient is requesting discharge from the inpatient psychiatric unit today, and I have no basis to retain him over his objection. Patient will be discharged today with psychiatric follow-up as arranged by counselor. Patient is also to follow up with primary care and with ophthalmology. I have counseled the patient to abstain from substances of abuse, and in particular to abstain from Kratom. I have counseled the patient to return to the psychiatric emergency room for any concerning symptoms as part of a general safety plan. Results Blood Pressure 140 / 84 Vital Signs Date Time Temp Pulse Resp B/P (MAP) Pulse Ox O2 Delivery O2 Flow Rate FiO2 07/15/17 06:00 97.3 77 18 140/84 (102) 97 Laboratory Results Test 07/10/17 07:08 Cholesterol Level 134 MG/DL (120-200) HDL Cholesterol 40.6 MG/DL (40.0-60.0) Hemoglobin A1c 4.6 % (4.3-6.0) LDL Cholesterol 80 MG/DL (0-99) Triglycerides Level 68 MG/DL (42-150) Summary of Procedures None done Imaging Last Impressions Brain MRI 07/10/17 0000 Signed Impressions: Service Date/Time: July 09:09 - CONCLUSION: Normal examination for a patient of this age. Matty Crook MD Pending results at discharge: No Medications # of Antipsychotic meds at D/C: 1 Approp Antipsych med options 1 - Minimum of three failed multiple trials of monotherapy. 2 - Documented plan to taper to monotherapy due to previous use of multiple meds OR cross-taper in progress at D/C. 3 - Documentation of augmentation of Clozapine. 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 Pt Condition on Discharge: Stable Discharge Disposition: Discharge Home Discharge Instructions Diet Instructions: As Tolerated, No Restrictions Activities you can perform: Weight Bearing as Ambar Scheduled Appointment: As per counselors notes New Medications: Hydroxyzine HCl (Hydroxyzine HCl) 50 Mg Tab 50 MG PO Q6H PRN for Anxiety for 15 Days, #60 TAB 1 Refill Discharge Time > 30 minutes Mental Status Examination Appearance: Appropriate Consciousness: Alert Orientation: x4 Motor Activity: Normal gait, Other (No motor abnormalities noted) Speech: Unremarkable Language: Adequate Fund of Knowledge: Adequate Attention and Concentration: Adequate Memory: Unremarkable Mood: Appropriate Affect: Appropriate Thought Process & Associations: Intact, Logical, Linear Thought Content: Appropriate Hallucination Type: None Delusion Type: None Suicidal Ideation: No Suicidal Plan: No Suicidal Intention: No Homicidal Ideation: No Homicidal Plan: No Homicidal Intention: No Mental Status Exam Remarks Insight and judgment seem fair Discharge/Advance Care Plan Health Problems: (1) Brief psychotic disorder Goals to promote your health * To prevent worsening of your condition and complications * To maintain your health at the optimal level Directions to meet your goals Take your medications as prescribed Follow your dietary instruction Follow activity as directed Keep your appointments as scheduled Take your immunizations and boosters as scheduled If your symptoms worsen call your PCP, if no PCP go to Urgent Care Center or Emergency Room For 23/09 questions related to your inpatient stay or results of tests pending at discharge, please contact Dr. Ismael Quigley at Smoking is Dangerous to Your Health. Avoid second hand smoking Ismael Quigley MD July 15, 2017 10:48
--- NOTE | 2017-07-15 15:49 | PD.TTN ---
Patient Problems 1. Discharge planning 2. Medication compliance 3. Knowledge deficit 4. Lack of coping skills Progress Toward Goals Provider Present: Dr. Danika Quigley Provider Input: 07/15/17 patient possible discharge home today Nurse(s) Input: Linsey: mother called this morning , med compliant, cooperative, he gets his Atarax often Psychiatric Counselors Present: Stephanie Lord LCSW Psych Therapist Input: 07/15/17 can return, will assist with follow up, transport and medications to be filled Group Spec/RT/OT/SAUCEDO Present: Collin Watson OT Group Spec/RT/OT/SAUCEDO Input: 07/15/17 attends select groups Stephanie Lord LCSW July 15, 2017 15:49
== END 2017-07-15 16:12 | disposition home or self-care (01) | DRG 885 ==
LOC: H270 10:14
PROVIDERS: ADMIT Psychiatry & Neurology Psychiatry; ATTEND Psychiatry & Neurology Psychiatry
DX: F23 Brief psychotic disorder (principal); D72.829 Elevated white blood cell count, unspecified; R73.9 Hyperglycemia, unspecified; F42.9 Obsessive-compulsive disorder, unspecified; H31.02 Solar retinopathy; F19.10 Other psychoactive substance abuse, uncomplicated; F41.9 Anxiety disorder, unspecified; Z81.8 Family history of other mental and behavioral disorders
CPT/HCPCS: 70553; 80048; 80053; 80061; 82140; 82607; 82746; 83036; 84443; 85025; 85652; 86038; 86592; 86703; 93005; 95819; A9579